=== PATIENT | female | born 1945 | race Caucasian/White ===

== ENCOUNTER 2021-12-23 09:41 | Outpatient (CLI) | payer MEDICARE, SELFPAY ==
--- NOTE | 2021-12-23 11:30 | NEURO_ITS ---
Impression: # Complains of lower back pain and numbness. # Normal nerve conduction study. # Normal needle/EMG exam. # Clinical correlation recommended; Higher involvement cannot be ruled out. Nerve Conduction Studies Anti Sensory Summary Table Stim Site NR Peak (ms) P-T Amp (?V) Site1 Site2 Delta-P (ms) Dist (cm) Kevyn (m/s) Left Sup Fibular Anti Sensory (Ant Lat Mall) 14 cm 3.3 5.6 14 cm Ant Lat Mall 3.3 16.0 48 Right Sup Fibular Anti Sensory (Ant Lat Mall) 14 cm 3.2 5.4 14 cm Ant Lat Mall 3.2 16.0 50 Left Sural Anti Sensory (Lat Mall) Calf 3.5 4.1 Calf Lat Mall 3.5 16.0 46 Right Sural Anti Sensory (Lat Mall) Calf 3.2 3.3 Calf Lat Mall 3.2 16.0 50 Motor Summary Table Stim Site NR Onset (ms) O-P Amp (mV) Site1 Site2 Delta-0 (ms) Dist (cm) Kevyn (m/s) Left Peroneal Motor (Vastus Med) Ankle 4.6 3.8 Popit Ankle 10.0 41.0 41 Popit 14.6 3.1 Right Peroneal Motor (Vastus Med) Ankle 4.2 3.8 Popit Ankle 8.2 36.0 44 Popit 12.4 3.5 Left Tibial Motor (Abd Avina Brev) Ankle 4.8 2.5 Knee Ankle 9.5 41.0 43 Knee 14.3 1.4 Right Tibial Motor (Abd Avina Brev) Ankle 4.4 2.6 Knee Ankle 9.7 39.0 40 Knee 14.1 2.0 F Wave Studies NR F-Lat (ms) L-R F-Lat (ms) Left Peroneal (Mrkrs) (EDB) 56.95 0.55 Right Peroneal (Mrkrs) (EDB) 56.41 0.55 Left Tibial (Mrkrs) (Abd Hallucis) 57.77 0.47 Right Tibial (Mrkrs) (Abd Hallucis) 57.30 0.47 EMG Side Muscle Nerve Root Ins Act Fibs Amp Dur Recrt Comment Right AntTibialis Dp Br Fibular L4-5 Nml Nml Nml Nml Nml Right Gastroc Tibial S1-2 Nml Nml Nml Nml Nml Right Fibularis Long Sup Br Fibular L5-S1 Nml Nml Nml Nml Nml Right Flex Dig Long Tibial L5-S2 Nml Nml Nml Nml Nml Right Ext Dig Brev Dp Br Fibular L5, S1 Nml Nml Nml Nml Nml Left AntTibialis Dp Br Fibular L4-5 Nml Nml Nml Nml Nml Left Gastroc Tibial S1-2 Nml Nml Nml Nml Nml Left Fibularis Long Sup Br Fibular L5-S1 Nml Nml Nml Nml Nml Left Flex Dig Long Tibial L5-S2 Nml Nml Nml Nml Nml Left Ext Dig Brev Dp Br Fibular L5, S1 Nml Nml Nml Nml Nml Right ExtHallLong Dp Br Fibular L5, S1 Nml Nml Nml Nml Nml Right Ext Dig Long Dp Br Fibular L5-S1 Nml Nml Nml Nml Nml Left ExtHallLong Dp Br Fibular L5, S1 Nml Nml Nml Nml Nml Left Ext Dig Long Dp Br Fibular L5-S1 Nml Nml Nml Nml Nml MTDD
== END 2021-12-23 09:42 | disposition home or self-care (01) ==
PROVIDERS: PCP Family Medicine; Visit Provider Family Medicine
DX: M54.10 Radiculopathy, site unspecified (principal)
CPT/HCPCS: 95886; 95910

== ENCOUNTER 2024-08-01 00:42 | Day surgery (SDC) | payer MEDICARE, SELFPAY ==
[2024-07-21 08:24] VITALS: BMI 20.4
--- OUTSIDE RECORDS SUMMARY | 2024-08-01 00:45 | XMS_ITS | CONTINUITY OF CARE DOCUMENT ---
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
--- OUTSIDE RECORDS SUMMARY | 2024-08-01 00:46 | XMS_ITS | Continuity of Care Document ---
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 , [address], [place], [address], [place]. tel:[phone] Family History Family Member Type Diagnosis Age At Onset No Information Payers Payer name Insurance type Covered green party ID Authoriza tion(s) No Information Social History Type Description Quantity Date Captured Comments Sex Female Smoking Status No Information Chief Complaint And Reason For Visit No Information Reason For Referral Reason For Referral No Information History Of Present Illness Encounter Date Complaint History Of Prese nt Illness No Information Functional Status Date Functional Assessmen t No Information Instructions Date Instruction Additional Infor mation No Information Assessments Type Assessment Date No Information Patient Care Teams Name Effective Dates (start - stop) Status Members No Information
[2024-08-01 11:05] VITALS: BP 143/95; PULSE 64; RESP 18; TEMP 36.4; O2SAT 98; BMI 19.1
[2024-08-01] MEDS: LACTATED RINGERS 1,000 ML 150 ML IV CONT (11:17)
--- NOTE | 2024-08-01 11:56 | P.PNAN_ITS ---
Anes - Initial Pre Proc Eval Procedure: Operation Date: 08/01/24 12:30 Proposed Procedures p Esophagogastroduodenoscopy & Colonoscopy - Partick Castano MD Date/Time: 08/01/24 11:56 Surgeon: Patrick Castano MD Pre Op Diagnosis: Melena,GERD Patient Data Age: 79 Gender: F Height: 1.73 m Weight: 57.1 kg Last Vital Signs Temp 36.4 C L 08/01/24 11:05 Pulse 64 08/01/24 11:05 Resp 18 08/01/24 11:05 BP 143/95 H 08/01/24 11:05 Pulse Ox 98 08/01/24 11:05 O2 Del Method Room Air 08/01/24 11:05 Allergies Allergy/AdvReac Type Severity Reaction Status Date / Time Penicillins Allergy Mild Rash Verified 08/01/24 11:03 Home Medications ?Medication ?Instructions ?Recorded ?Confirmed ?Type aspirin 81 mg tablet,delayed 81 mg PO DAILY 10/21/21 07/21/24 History release cholecalciferol (vitamin D3) 125 125 mcg PO DAILY #90 caps 07/01/23 08/01/24 Rx mcg (5,000 unit) capsule cyclobenzaprine 5 mg tablet 5 mg PO TID PRN muscle spasm #20 08/18/23 07/21/24 Rx tabs gabapentin 300 mg capsule 300 mg PO TID #90 caps 08/18/23 08/01/24 Rx levothyroxine 75 mcg tablet 75 mcg PO DAILY #90 tabs 09/22/23 08/01/24 Rx oxybutynin chloride 5 mg tablet See Rx Instructions .Route 01/26/24 08/01/24 Rx .COMPLEX #90 tabs trazodone 100 mg tablet 100 mg PO QHS PRN insomnia #90 tabs 01/26/24 07/21/24 Rx insulin syringe-needle U-100 0.3 #100 ea 03/29/24 Rx mL 31 gauge x 5/16 (BD Insulin Syringe Ultra-Fine) syringe (disposable) 1 mL (BD #100 ea 03/30/24 Rx Luer-Adriana Syringe) rosuvastatin 10 mg tablet 10 mg PO DAILY #90 tabs 04/10/24 08/01/24 Rx cyanocobalamin (vitamin B-12) 1,000 mcg IM 2XW #25 mL 04/21/24 07/21/24 Rx 1,000 mcg/mL injection solution famotidine 40 mg tablet 40 mg PO QHS #30 tabs 05/03/24 08/01/24 Rx sertraline 100 mg tablet (Zoloft) 150 mg (1.5 x 100 mg) PO DAILY 05/12/24 08/01/24 Rx #135 tabs estradiol 0.01% (0.1 mg/gram) vaginal 05/25/24 05/25/24 History vaginal cream mirabegron 25 mg tablet,extended mg PO ONCE 05/25/24 05/25/24 History release 24 hr ondansetron 4 mg disintegrating 4 mg PO Q8H PRN nausea and 05/25/24 07/21/24 Rx tablet vomiting #20 tabs alprazolam 0.5 mg tablet 0.5 mg PO TID PRN anxiety #90 tabs 07/11/24 08/01/24 Rx Patient hx anesthesia problems: none Family hx anesthesia problems: none Results Review: All pre-operative results and documents have been reviewed as part of the pre- operative evaluation. [facility] Past Medical History Medical History Vitamin D deficiency Hypotension Insomnia Swelling, mass, or lump in chest Constipation GERD without esophagitis Lumbosacral spondylosis with radiculopathy Hyperlipidemia Hypothyroid Osteopenia Anxiety Surgical History Surgical History History of back surgery History of Social History Social History Smoking packs per day: 0.5 Smoking cigarettes per day: 10.0 Years smoked: 40 Smoking pack-years: 20.00 Smoking status: Current every day smoker Tobacco type: cigarettes Alcohol intake: never Substance use: never Substance use type: does not use Do You Feel Safe in your Home?: Yes Lack of Transportation: No Lack of Food: Never True Current Housing: I Have Housing Concerned About Future Housing: No Difficulty Paying Gas/Electric Bills: No Difficulty Paying for Meds: No Currently Unemployed: No Difficulty w/ Childcare or Family Care: YES Living arrangements: with family Spiritual care concerns: No Anes - Eval Final PreProcedure Day of Procedure 08/01/24 11:56 Patient weight: thin Heart: regular rate and rhythm Lungs: clear to auscultation Airway: Mallampati scale class II Neurological: alert and oriented Last oral intake: >/= 8 hours ASA classification: IV Emergent: no Anesthetic plan: proceed Anesthesia type and monitoring: general GIVS and standard monitoring Results Review: All pre-operative results and documents have been reviewed as part of the pre- operative evaluation. Informed Consent: The patient's anesthetic plan and its attendant risks and benefits were discussed with the patient/family/POA. Questions were solicited and answers provided to the satisfaction of the patient/family/POA.
--- NOTE | 2024-08-01 12:08 | PM.HPGS ---
History of Present Illness History of Present Illness Consent: Risks, benefits, and alternatives have been discussed and questions answered. Patient agrees to proceed with procedure. Chief complaint: Melena,GERD Narrative: Shanta Kaba is a 79 year old female with nausea and epigastric pain, also had + occult blood stool, last colonoscopy 12 years ago. Review of Systems Review of Systems: All systems reviewed & are unremarkable except as noted in HPI and below PMFSH Past Medical History Medical History Vitamin D deficiency Hypotension Insomnia Swelling, mass, or lump in chest Constipation GERD without esophagitis Lumbosacral spondylosis with radiculopathy Hyperlipidemia Hypothyroid Osteopenia Anxiety Surgical History Surgical History History of back surgery History of Social History Social History Smoking packs per day: 0.5 Smoking cigarettes per day: 10.0 Years smoked: 40 Smoking pack-years: 20.00 Smoking status: Current every day smoker Tobacco type: cigarettes Alcohol intake: never Substance use: never Substance use type: does not use Do You Feel Safe in your Home?: Yes Lack of Transportation: No Lack of Food: Never True Current Housing: I Have Housing Concerned About Future Housing: No Difficulty Paying Gas/Electric Bills: No Difficulty Paying for Meds: No Currently Unemployed: No Difficulty w/ Childcare or Family Care: YES Living arrangements: with family Spiritual care concerns: No Meds Home Medications and Allergies Home Medications ?Medication ?Instructions ?Recorded ?Confirmed ?Type aspirin 81 mg tablet,delayed 81 mg PO DAILY 10/21/21 07/21/24 History release cholecalciferol (vitamin D3) 125 125 mcg PO DAILY #90 caps 07/01/23 08/01/24 Rx mcg (5,000 unit) capsule cyclobenzaprine 5 mg tablet 5 mg PO TID PRN muscle spasm #20 08/18/23 07/21/24 Rx tabs gabapentin 300 mg capsule 300 mg PO TID #90 caps 08/18/23 08/01/24 Rx levothyroxine 75 mcg tablet 75 mcg PO DAILY #90 tabs 09/22/23 08/01/24 Rx oxybutynin chloride 5 mg tablet See Rx Instructions .Route 01/26/24 08/01/24 Rx .COMPLEX #90 tabs trazodone 100 mg tablet 100 mg PO QHS PRN insomnia #90 tabs 01/26/24 07/21/24 Rx insulin syringe-needle U-100 0.3 #100 ea 03/29/24 Rx mL 31 gauge x 5/16 (BD Insulin Syringe Ultra-Fine) syringe (disposable) 1 mL (BD #100 ea 03/30/24 Rx Luer-Adriana Syringe) rosuvastatin 10 mg tablet 10 mg PO DAILY #90 tabs 04/10/24 08/01/24 Rx cyanocobalamin (vitamin B-12) 1,000 mcg IM 2XW #25 mL 04/21/24 07/21/24 Rx 1,000 mcg/mL injection solution famotidine 40 mg tablet 40 mg PO QHS #30 tabs 05/03/24 08/01/24 Rx sertraline 100 mg tablet (Zoloft) 150 mg (1.5 x 100 mg) PO DAILY 05/12/24 08/01/24 Rx #135 tabs estradiol 0.01% (0.1 mg/gram) vaginal 05/25/24 05/25/24 History vaginal cream mirabegron 25 mg tablet,extended mg PO ONCE 05/25/24 05/25/24 History release 24 hr ondansetron 4 mg disintegrating 4 mg PO Q8H PRN nausea and 05/25/24 07/21/24 Rx tablet vomiting #20 tabs alprazolam 0.5 mg tablet 0.5 mg PO TID PRN anxiety #90 tabs 07/11/24 08/01/24 Rx Allergies Allergy/AdvReac Type Severity Reaction Status Date / Time Penicillins Allergy Mild Rash Verified 08/01/24 11:03 Vital Signs Vital Signs - 24 hr 08/01/24 11:05 Temperature 97.5 F L Pulse Rate 64 Respiratory Rate 18 Blood Pressure 143/95 H Pulse Oximetry 98 Oxygen Delivery Room Air Exam Const: General: comfortable and no acute distress HENMT: Face/Nose/Sinus: Normal nares present Eyes: General: appearance normal, both eyes and all related structures Neck: Neck: no JVD Resp: Auscultation: clear to auscultation bilaterally Cardio: Rate: regular rate Rhythm: regular rhythm GI: Inspection: non-distended GI Palp: Yes Soft to palpation Skin: General skin exam: normal color Neuro: General: gait normal Speech: normal speech Extrem: General: normal to inspection Psych: Mental Status: mental status grossly normal Assessment and Plan Assessment and plan (1) Occult blood in stools: Code(s): R19.5 - Other fecal abnormalities Status: Acute Assessment and Plan: colonoscopy (2) Chronic constipation: Code(s): K59.09 - Other constipation Status: Acute (3) GERD without esophagitis: Code(s): K21.9 - Gastro-esophageal reflux disease without esophagitis Status: Acute Assessment and Plan: egd with bx
--- NOTE | 2024-08-01 12:14 | SUR.OPER ---
EGD: [id number] Colon: [id number]
[2024-08-01 12:43] VITALS: BP 129/77; PULSE 80; RESP 18; O2SAT 100
[2024-08-01 12:53] VITALS: BP 132/74; PULSE 60; RESP 18; O2SAT 98
[2024-08-01 13:03] VITALS: BP 146/82; PULSE 62; RESP 23; O2SAT 100
== END 2024-08-01 13:19 | disposition home or self-care (01) ==
PROVIDERS: PCP Family Medicine; Referring Provider Nurse Practitioner Family; Visit Provider Internal Medicine Gastroenterology
PROC: 0DJ08ZZ Inspection of Upper Intestinal Tract, Via Natural or Artificial Opening Endoscopic (ICD-10-PCS; CPT 45378; principal; 2024-08-01 12:30)
DX: R19.5 Other fecal abnormalities (principal); D12.3 Benign neoplasm of transverse colon; D12.0 Benign neoplasm of cecum; D12.4 Benign neoplasm of descending colon; K57.30 Diverticulosis of large intestine without perforation or abscess without bleeding; K64.8 Other hemorrhoids; K22.2 Esophageal obstruction; K29.70 Gastritis, unspecified, without bleeding; K59.09 Other constipation; F17.210 Nicotine dependence, cigarettes, uncomplicated
CPT/HCPCS: 45385; 43249; 43239; 88305; C1726; J2003; J2704; J7120